=== PATIENT | female | born 1950 | race African-American/Black ===

== ENCOUNTER 2021-06-08 17:47 | Emergency (ER) | payer MEDICARE, MEDICAID ==
[~2021-06-08] VITALS: Ht 157.5 cm; Wt 40.8 kg
[2021-06-08 19:10] LABS: Basophils # (auto) 0 10 ^3/uL (0-0.2); Basophils % (auto) 1.1 % (0.0-2.0); Eosinophils # (auto) 0.1 10 ^3/uL (0-0.8); Eosinophils % (auto) 1.9 % (0.0-7.0); Hematocrit 35.7 % (36.0-46.0); Hemoglobin 11.8 g/dL (12.2-16.2); Lymphocytes % (auto) 24.6 % (10.0-50.0); Mean Corpuscular Hemoglobin 28.9 pg (28.0-32.0); Mean Corpuscular Hgb Conc. 33.1 g/dL (32.0-36.0); Mean Corpuscular Volume 87.4 fL (80.0-100.0); Monocytes # (auto) 0.4 10 ^3/uL (0-1.3); Monocytes % (auto) 8.5 % (0.0-12.0); Neutrophils # (auto) 2.7 10 ^3/uL (1.6-8.6); Neutrophils % (auto) 63.9 % (37.0-80.0); Nucleated Red Blood Cells % 0.2 %; Red Blood Cells 4.09 10^6/uL (4.0-5.20); White Blood Cell 4.2 10^3/uL (4.4-10.8)
[2021-06-08 19:25] LABS: Albumin 3.3 g/dL (3.4-5.0); BUN/Creatinine Ratio 22.7; Calcium 9.2 mg/dL (8.5-10.1); Potassium 3.5 mmol/L (3.5-5.1)
[2021-06-08 19:30] LABS: Bilirubin, Total 0.3 mg/dL (0.2-1.0); Total Protein 7.8 g/dL (6.4-8.2)
[2021-06-08] MEDS ORDERED: ASPirin 325 MG TAB PO ONE (21:00)
[2021-06-08 22:02] LABS: Urine Bacteria NONE SEEN /hpf (None Seen); Urine Blood Negative /uL (Negative); Urine Specific Gravity 1.013 (1.001-1.035); Urine WBC 1 /hpf (0 - 5)
[2021-06-09 03:08] VITALS: BP 167/95
== END 2021-06-09 03:36 | disposition short-term general hospital (02) ==
LOC: ER 17:47
DX: R41.82 Altered mental status, unspecified (principal); N28.9 Disorder of kidney and ureter, unspecified; R77.8 Other specified abnormalities of plasma proteins; R42 Dizziness and giddiness; R44.1 Visual hallucinations; Z20.822 Contact with and (suspected) exposure to COVID-19
CPT/HCPCS: 36415; 70450; 71045; 80053; 81001; 83880; 84484; 85025; 93005; 99291

== ENCOUNTER 2022-01-07 10:53 | Emergency (ER) | payer OTHER, MEDICAID ==
[~2022-01-07] VITALS: Ht 152.4 cm; Wt 60.0 kg
[2022-01-07] MEDS ORDERED: IPRATROPIUM BROM 0.5 MG/2.5ML INH SOL HHN ONE (11:15)
[2022-01-07] MEDS ORDERED: amLODIPine BESYLATE 5 MG TAB PO ONE (11:15)
[2022-01-07] MEDS ORDERED: ALBUTEROL SULF 2.5 MG/0.5ML(0.5%) NEB SOLN HHN ONE (11:15)
[2022-01-07 11:24] LABS: Basophils # (auto) 0 10 ^3/uL (0-0.2); Basophils % (auto) 0.4 % (0.0-2.0); Eosinophils # (auto) 0.1 10 ^3/uL (0-0.8); Eosinophils % (auto) 0.8 % (0.0-7.0); Hematocrit 46.9 % (36.0-46.0); Hemoglobin 15.3 g/dL (12.2-16.2); Lymphocytes # (auto) 1.2 10 ^3/uL (0.4-5.4); Lymphocytes % (auto) 18.5 % (10.0-50.0); Mean Corpuscular Hemoglobin 28.1 pg (28.0-32.0); Mean Corpuscular Hgb Conc. 32.6 g/dL (32.0-36.0); Mean Corpuscular Volume 86.3 fL (80.0-100.0); Monocytes # (auto) 0.4 10 ^3/uL (0-1.3); Monocytes % (auto) 6.4 % (0.0-12.0); Neutrophils # (auto) 4.9 10 ^3/uL (1.6-8.6); Neutrophils % (auto) 73.9 % (37.0-80.0); Nucleated Red Blood Cells % 0.2 %; Red Blood Cells 5.44 10^6/uL (4.0-5.20); Red Cell Distribution Width 15.8 % (11.8-14.3); White Blood Cell 6.7 10^3/uL (4.4-10.8)
[2022-01-07] MEDS ORDERED: methylPREDNISolone SOD SUCC 125 MG/2 ML VL IV ONE (11:45)
[2022-01-07 11:49] LABS: Albumin 3.2 g/dL (3.4-5.0); Calcium 9.3 mg/dL (8.5-10.1)
[2022-01-07 11:52] LABS: BUN/Creatinine Ratio 14.8; Bilirubin, Total 0.6 mg/dL (0.2-1.0)
[2022-01-07] MEDS ORDERED: METH4PAK PO ×2 (12:47→12:49)
[2022-01-07] MEDS ORDERED: AZIT1POW PO ×2 (12:47→12:49)
[2022-01-07] MEDS ORDERED: methylPREDNISolone SOD SUCC 125 MG/2 ML VL IM ONE (13:15)
[2022-01-07 13:19] VITALS: BP 174/104
[2022-01-07] MEDS ORDERED: cloNIDine HCL 0.1 MG TAB PO ONE (13:45)
== END 2022-01-07 13:56 | disposition home or self-care (01) ==
LOC: EDBD 10:53 → ER 10:53
DX: J44.1 Chronic obstructive pulmonary disease with (acute) exacerbation (principal); J20.9 Acute bronchitis, unspecified; F17.210 Nicotine dependence, cigarettes, uncomplicated; F12.90 Cannabis use, unspecified, uncomplicated; J44.9 Chronic obstructive pulmonary disease, unspecified; I10 Essential (primary) hypertension; Z20.822 Contact with and (suspected) exposure to COVID-19; Z86.73 Personal history of transient ischemic attack (TIA), and cerebral infarction without residual deficits; Z90.49 Acquired absence of other specified parts of digestive tract; Z98.890 Other specified postprocedural states
CPT/HCPCS: 36415; 71046; 80053; 85025; 85379; 87426; 93005; 94640; 96372; 99285; J2930; J7644

== ENCOUNTER 2022-01-26 09:37 | Emergency (ER) | payer OTHER, MEDICAID ==
[~2022-01-26] VITALS: Ht 160 cm; Wt 39.9 kg
[~2022-01-26 09:37] MED LIST: AZIT1POW PO; METH4PAK PO
[2022-01-26 10:30] VITALS: BP 171/92
[2022-01-26] MEDS ORDERED: ACETAMINOPHEN 325 MG TAB PO ONE (12:00)
== END 2022-01-26 17:26 | disposition home or self-care (01) ==
LOC: ER 09:37
DX: S62.617B Displaced fracture of proximal phalanx of left little finger, initial encounter for open fracture (principal); I10 Essential (primary) hypertension; E78.5 Hyperlipidemia, unspecified; J44.9 Chronic obstructive pulmonary disease, unspecified; F17.210 Nicotine dependence, cigarettes, uncomplicated; Z86.73 Personal history of transient ischemic attack (TIA), and cerebral infarction without residual deficits; Z90.49 Acquired absence of other specified parts of digestive tract; Z79.899 Other long term (current) drug therapy; X58.XXXA Exposure to other specified factors, initial encounter; Y93.89 Activity, other specified; Y92.89 Other specified places as the place of occurrence of the external cause; Y99.8 Other external cause status
CPT/HCPCS: 29130; 73140

== ENCOUNTER 2022-02-13 01:38 | Inpatient (IN) | payer OTHER, MEDICAID ==
[~2022-02-13] VITALS: Ht 160 cm; Wt 41.9 kg
[2022-02-13 03:29] LABS: Basophils # (auto) 0 10 ^3/uL (0-0.2); Basophils % (auto) 0.6 % (0.0-2.0); Eosinophils # (auto) 0.1 10 ^3/uL (0-0.8); Eosinophils % (auto) 1.4 % (0.0-7.0); Hematocrit 38.4 % (36.0-46.0); Hemoglobin 12.6 g/dL (12.2-16.2); Lymphocytes # (auto) 0.9 10 ^3/uL (0.4-5.4); Lymphocytes % (auto) 15.5 % (10.0-50.0); Mean Corpuscular Hemoglobin 28.5 pg (28.0-32.0); Mean Corpuscular Hgb Conc. 32.7 g/dL (32.0-36.0); Mean Corpuscular Volume 87.1 fL (80.0-100.0); Monocytes # (auto) 0.5 10 ^3/uL (0-1.3); Monocytes % (auto) 8.3 % (0.0-12.0); Neutrophils # (auto) 4.1 10 ^3/uL (1.6-8.6); Neutrophils % (auto) 74.2 % (37.0-80.0); Nucleated Red Blood Cells % 0.1 %; Red Blood Cells 4.41 10^6/uL (4.0-5.20); Red Cell Distribution Width 15.6 % (11.8-14.3); White Blood Cell 5.6 10^3/uL (4.4-10.8)
[2022-02-13 03:54] LABS: Albumin 3.2 g/dL (3.4-5.0); Bilirubin, Total 0.3 mg/dL (0.2-1.0); Calcium 9.3 mg/dL (8.5-10.1); Potassium 4.5 mmol/L (3.5-5.1); Total Protein 7.1 g/dL (6.4-8.2)
[2022-02-13] MEDS ORDERED: HEPARIN DRIP/D5W 100UNITS/ML 250 ML IV SCH (04:45)
[2022-02-13] MEDS ORDERED: MORPHINE SULFATE 4 MG/ML SYR/VIAL IV ONE (04:45)
[2022-02-13] MEDS ORDERED: ONDANSETRON HCL 4 MG/2 ML VIAL IV ONE (04:45)
[2022-02-13] MEDS ORDERED: HEPARIN SODIUM (PORCINE) 5000 UNITS/ML 1ML VIAL IV ONE (04:45)
[2022-02-13 05:54] LABS: INR 0.92 (0.9-1.15); Partial Thromboplastin Time 26.7 sec (24.6-33.4)
[2022-02-13] MEDS ORDERED: NITROGLYCERIN 0.4 MG SL TAB SL PRN (06:00)
[2022-02-13] MEDS ORDERED: DOCUSATE SOD 100 MG CAP PO PRN (06:00)
[2022-02-13] MEDS ORDERED: ONDANSETRON HCL 4 MG/2 ML VIAL IV PRN (06:00)
[2022-02-13] MEDS ORDERED: ACETAMINOPHEN 325 MG TAB PO PRN (06:00)
[2022-02-13] MEDS ORDERED: METOPROLOL TARTRATE 1MG/1ML-5ML VIAL IV ONE (06:30)
[2022-02-13] MEDS ORDERED: HEPARIN SODIUM (PORCINE) 5000 UNITS/ML 1ML VIAL SC ONE (06:45)
[2022-02-13] MEDS: SODIUM CHLOR 0.9% PF (SALINE LOCK) 10ML VIAL/SYR IV SCH ×2 (07:11→14:05)
[2022-02-13] MEDS: HEPARIN SODIUM (PORCINE) 5000 UNITS/ML 1ML VIAL IV SCH ×2 (08:29→10:00)
[2022-02-13] MEDS ORDERED: FAMOTIDINE (10MG/ML) 2ML VL IV SCH (10:00)
[2022-02-13] MEDS: ASPirin 81 mg TAB PO SCH (11:06)
[2022-02-13] MEDS: hydrALAZINE HCL 20 MG/ML VL IV PRN ×2 (14:38→19:54)
[2022-02-13] MEDS: MORPHINE SULFATE INJ 2 MG/ml SYRG IV PRN (19:53)
[2022-02-14] MEDS: METOPROLOL TARTRATE 25 MG TAB PO SCH ×4 (00:01→22:06)
[2022-02-14] MEDS: HEPARIN SODIUM (PORCINE) 5000 UNITS/ML 1ML VIAL IV SCH (00:02)
[2022-02-14] MEDS: SODIUM CHLOR 0.9% PF (SALINE LOCK) 10ML VIAL/SYR IV SCH ×4 (00:02→22:07)
[2022-02-14] MEDS: hydrALAZINE HCL 20 MG/ML VL IV PRN ×3 (00:06→19:14)
[2022-02-14] MEDS: MORPHINE SULFATE INJ 2 MG/ml SYRG IV PRN (01:44)
[2022-02-14] MEDS ORDERED: LABETALOL HCL 5 MG/ML 4ML SYRINGE IV ONE ×2 (02:30→03:15)
[2022-02-14 05:21] LABS: Basophils # (auto) 0 10 ^3/uL (0-0.2); Basophils % (auto) 0.5 % (0.0-2.0); Eosinophils # (auto) 0 10 ^3/uL (0-0.8); Eosinophils % (auto) 0.5 % (0.0-7.0); Hematocrit 38.1 % (36.0-46.0); Hemoglobin 12.3 g/dL (12.2-16.2); Lymphocytes # (auto) 0.9 10 ^3/uL (0.4-5.4); Lymphocytes % (auto) 15.9 % (10.0-50.0); Mean Corpuscular Hemoglobin 28.6 pg (28.0-32.0); Mean Corpuscular Hgb Conc. 32.3 g/dL (32.0-36.0); Mean Corpuscular Volume 88.4 fL (80.0-100.0); Monocytes # (auto) 0.3 10 ^3/uL (0-1.3); Monocytes % (auto) 5.4 % (0.0-12.0); Neutrophils # (auto) 4.5 10 ^3/uL (1.6-8.6); Neutrophils % (auto) 77.7 % (37.0-80.0); Nucleated Red Blood Cells % 0.1 %; Red Blood Cells 4.31 10^6/uL (4.0-5.20); White Blood Cell 5.8 10^3/uL (4.4-10.8)
[2022-02-14 05:43] LABS: Calcium 8.9 mg/dL (8.5-10.1); Potassium 4.9 mmol/L (3.5-5.1)
[2022-02-14 05:47] LABS: BUN/Creatinine Ratio 13.8
[2022-02-14 05:57] LABS: Bilirubin, Total 0.3 mg/dL (0.2-1.0); Total Protein 6.7 g/dL (6.4-8.2)
[2022-02-14 09:47] VITALS: BP 181/104
[2022-02-14] MEDS: ASPirin 81 mg TAB PO SCH (10:00)
[2022-02-14] MEDS ORDERED: amLODIPine BESYLATE 5 MG TAB PO ONE (10:45)
[2022-02-14] MEDS ORDERED: cefTRIAXone 1GM/50ML D5W 50 ML IV ONE (10:45)
[2022-02-14] MEDS ORDERED: LORazepam 2MG/ML-1ML VIAL IV PRN (10:45)
[2022-02-14 13:00] VITALS: BP 146/77
[2022-02-14 17:00] VITALS: BP 118/90
[2022-02-14] MEDS: HYDROcodone-ACET 5/325MG TAB PO PRN ×2 (18:49→23:04)
[2022-02-14] MEDS ORDERED: NIFE1TAB36 PO (19:54)
[2022-02-14] MEDS ORDERED: SERT50TA19 PO (20:04)
[2022-02-14] MEDS ORDERED: THEO400T10 PO (20:05)
[2022-02-14] MEDS ORDERED: GABA300C10 PO (20:07)
[2022-02-14 22:00] VITALS: BP 131/62
[2022-02-15] MEDS: HYDROcodone-ACET 5/325MG TAB PO PRN ×4 (03:53→20:37)
[2022-02-15 05:00] VITALS: BP 140/38
[2022-02-15] MEDS: SODIUM CHLOR 0.9% PF (SALINE LOCK) 10ML VIAL/SYR IV SCH ×3 (05:40→22:00)
[2022-02-15 07:06] LABS: Calcium 9.3 mg/dL (8.5-10.1)
[2022-02-15 07:08] LABS: BUN/Creatinine Ratio 16.1
[2022-02-15 07:14] LABS: Albumin 2.9 g/dL (3.4-5.0); Bilirubin, Total 0.2 mg/dL (0.2-1.0); Total Protein 6.4 g/dL (6.4-8.2)
[2022-02-15 07:15] LABS: Basophils # (auto) 0 10 ^3/uL (0-0.2); Basophils % (auto) 0.5 % (0.0-2.0); Eosinophils # (auto) 0.1 10 ^3/uL (0-0.8); Eosinophils % (auto) 1.9 % (0.0-7.0); Hematocrit 39.6 % (36.0-46.0); Hemoglobin 12.7 g/dL (12.2-16.2); Lymphocytes # (auto) 0.9 10 ^3/uL (0.4-5.4); Lymphocytes % (auto) 19.5 % (10.0-50.0); Mean Corpuscular Hemoglobin 28.1 pg (28.0-32.0); Mean Corpuscular Volume 87.9 fL (80.0-100.0); Monocytes # (auto) 0.5 10 ^3/uL (0-1.3); Monocytes % (auto) 10.1 % (0.0-12.0); Neutrophils # (auto) 3.3 10 ^3/uL (1.6-8.6); Nucleated Red Blood Cells % 0.2 %; Red Cell Distribution Width 15.9 % (11.8-14.3); White Blood Cell 4.9 10^3/uL (4.4-10.8)
[2022-02-15 07:54] LABS: Potassium 6.3 mmol/L (3.5-5.1)
[2022-02-15 08:00] VITALS: BP 151/85
[2022-02-15] MEDS: cefTRIAXone 1GM/50ML D5W 50 ML IV SCH (08:36)
[2022-02-15] MEDS: ASPirin 81 mg TAB PO SCH (11:20)
[2022-02-15] MEDS: amLODIPine BESYLATE 5 MG TAB PO SCH (11:21)
[2022-02-15] MEDS: METOPROLOL TARTRATE 25 MG TAB PO SCH ×2 (11:22→20:45)
[2022-02-15 12:00] VITALS: BP 151/76
[2022-02-15] MEDS: SODIUM ZIRCONIUM CYCL 10 GM PAK PO SCH ×2 (13:11→20:36)
[2022-02-15 16:00] VITALS: BP 149/82
[2022-02-15 16:49] LABS: Urine Bacteria FEW /hpf (None Seen); Urine Blood Negative /uL (Negative); Urine Specific Gravity 1.008 (1.001-1.035); Urine WBC 2 /hpf (0 - 5)
[2022-02-15] MEDS: SOD CHL 0.45% 1,000 ML IV SCH (17:32)
[2022-02-15 22:00] VITALS: BP 150/87
[2022-02-16] MEDS: HYDROcodone-ACET 5/325MG TAB PO PRN ×5 (00:55→21:45)
[2022-02-16] MEDS: SOD CHL 0.45% 1,000 ML IV SCH (00:59)
[2022-02-16] MEDS: SODIUM ZIRCONIUM CYCL 10 GM PAK PO SCH (04:21)
[2022-02-16] MEDS: hydrALAZINE HCL 20 MG/ML VL IV PRN (04:42)
[2022-02-16 05:00] VITALS: BP 160/83
[2022-02-16] MEDS: SODIUM CHLOR 0.9% PF (SALINE LOCK) 10ML VIAL/SYR IV SCH ×3 (05:51→21:46)
[2022-02-16 06:32] LABS: BUN/Creatinine Ratio 17.2; Calcium 8.9 mg/dL (8.5-10.1); Potassium 3.7 mmol/L (3.5-5.1)
[2022-02-16] MEDS: cefTRIAXone 1GM/50ML D5W 50 ML IV SCH (08:34)
[2022-02-16 09:00] VITALS: BP 149/81
[2022-02-16] MEDS: ASPirin 81 mg TAB PO SCH (10:37)
[2022-02-16] MEDS: amLODIPine BESYLATE 5 MG TAB PO SCH (10:38)
[2022-02-16] MEDS: METOPROLOL TARTRATE 25 MG TAB PO SCH ×2 (10:38→21:45)
[2022-02-16] MEDS ORDERED: hydrALAZINE HCL 25 MG TAB PO ONE (10:45)
[2022-02-16 13:00] VITALS: BP 155/83
[2022-02-16 17:00] VITALS: BP 144/85
[2022-02-16] MEDS: hydrALAZINE HCL 25 MG TAB PO SCH (21:46)
[2022-02-16 22:00] VITALS: BP 144/82
[2022-02-17 05:00] VITALS: BP 173/81
[2022-02-17] MEDS: hydrALAZINE HCL 20 MG/ML VL IV PRN (05:28)
[2022-02-17] MEDS: SODIUM CHLOR 0.9% PF (SALINE LOCK) 10ML VIAL/SYR IV SCH (05:29)
[2022-02-17 07:12] LABS: Calcium 9.1 mg/dL (8.5-10.1); Potassium 3.7 mmol/L (3.5-5.1)
[2022-02-17 07:15] LABS: BUN/Creatinine Ratio 18.6
[2022-02-17] MEDS: HYDROcodone-ACET 5/325MG TAB PO PRN ×2 (08:12→12:41)
[2022-02-17 09:00] VITALS: BP 137/51
[2022-02-17] MEDS: cefTRIAXone 1GM/50ML D5W 50 ML IV SCH (10:11)
[2022-02-17] MEDS: METOPROLOL TARTRATE 25 MG TAB PO SCH (10:16)
[2022-02-17] MEDS: hydrALAZINE HCL 25 MG TAB PO SCH (10:18)
[2022-02-17] MEDS: ASPirin 81 mg TAB PO SCH (10:18)
[2022-02-17] MEDS: amLODIPine BESYLATE 5 MG TAB PO SCH (10:18)
[2022-02-17] MEDS ORDERED: MET25T PO (11:09)
[2022-02-17] MEDS ORDERED: HYDR25TA87 PO (11:09)
[2022-02-17] MEDS ORDERED: AML5T PO (11:09)
[2022-02-17 12:18] VITALS: BP 143/69
[2022-02-17 13:00] VITALS: BP 143/69
== END 2022-02-17 14:40 | disposition home or self-care (01) | DRG 280 ==
LOC: EDSEX 01:38 → EDBD 01:38 → ER 01:38 → TELE 06:06 → TELE-CENTR 02-14 08:36
PROVIDERS: ADMIT Nurse Practitioner Family; ATTEND Internal Medicine
PROC: 05HA33Z Insertion of Infusion Device into Left Brachial Vein, Percutaneous Approach (ICD-10-PCS; principal; 2022-02-15)
PROC: B54NZZA Ultrasonography of Left Upper Extremity Veins, Guidance (ICD-10-PCS; 2022-02-15)
DX: I16.0 Hypertensive urgency (principal); G92.8 Other toxic encephalopathy; I21.A1 Myocardial infarction type 2; N17.0 Acute kidney failure with tubular necrosis; J44.1 Chronic obstructive pulmonary disease with (acute) exacerbation; I13.0 Hypertensive heart and chronic kidney disease with heart failure and stage 1 through stage 4 chronic kidney disease, or unspecified chronic kidney disease; E78.5 Hyperlipidemia, unspecified; F17.210 Nicotine dependence, cigarettes, uncomplicated; E87.5 Hyperkalemia; N18.9 Chronic kidney disease, unspecified; Z20.822 Contact with and (suspected) exposure to COVID-19; M19.90 Unspecified osteoarthritis, unspecified site; I50.9 Heart failure, unspecified; Z79.82 Long term (current) use of aspirin; Z79.899 Other long term (current) drug therapy; Z86.73 Personal history of transient ischemic attack (TIA), and cerebral infarction without residual deficits; Z71.6 Tobacco abuse counseling
CPT/HCPCS: 36415; 70450; 71045; 76775; 80048; 80053; 81001; 82607; 83880; 84132; 84443; 84484; 85025; 85610; 85730; 87086; 87426; 93005; 93306; 96374; 96375; 97163; G0378; J0696; J2405; J3490

== ENCOUNTER 2022-02-25 16:40 | Inpatient (IN) | payer OTHER, MEDICAID ==
[~2022-02-25] VITALS: Ht 165.1 cm; Wt 49.7 kg
[~2022-02-25 16:40] MED LIST changes: +AML5T PO; +GABA300C10 PO; +HYDR25TA87 PO; +MET25T PO; +NIFE1TAB36 PO; +SERT50TA19 PO; +THEO400T10 PO
[2022-02-25 18:35] LABS: Basophils # (auto) 0 10 ^3/uL (0-0.2); Basophils % (auto) 0.3 % (0.0-2.0); Eosinophils # (auto) 0 10 ^3/uL (0-0.8); Eosinophils % (auto) 0.1 % (0.0-7.0); Hematocrit 33.8 % (36.0-46.0); Lymphocytes # (auto) 0.9 10 ^3/uL (0.4-5.4); Lymphocytes % (auto) 11.5 % (10.0-50.0); Mean Corpuscular Hemoglobin 28.9 pg (28.0-32.0); Mean Corpuscular Hgb Conc. 32.5 g/dL (32.0-36.0); Mean Corpuscular Volume 88.8 fL (80.0-100.0); Monocytes # (auto) 0.5 10 ^3/uL (0-1.3); Monocytes % (auto) 6.4 % (0.0-12.0); Neutrophils # (auto) 6.1 10 ^3/uL (1.6-8.6); Neutrophils % (auto) 81.7 % (37.0-80.0); Nucleated Red Blood Cells % 0.1 %; Red Cell Distribution Width 15.6 % (11.8-14.3); White Blood Cell 7.5 10^3/uL (4.4-10.8)
[2022-02-25 18:59] LABS: Albumin 3.1 g/dL (3.4-5.0); BUN/Creatinine Ratio 14.8; Calcium 8.7 mg/dL (8.5-10.1); Potassium 4.4 mmol/L (3.5-5.1)
[2022-02-25 19:01] LABS: Bilirubin, Total 0.3 mg/dL (0.2-1.0); Total Protein 6.9 g/dL (6.4-8.2)
[2022-02-25] MEDS ORDERED: SODIUM CHLORIDE 0.9% 1,000 ML IV ONE (19:15)
[2022-02-25] MEDS ORDERED: ASPirin 325 MG TAB PO ONE ×2 (19:15)
[2022-02-25 22:30] LABS: Urine Bacteria FEW /hpf (None Seen); Urine Blood Negative /uL (Negative); Urine Hyaline Cast FEW /lpf (0 - 2); Urine Mucus FEW (None Seen); Urine Specific Gravity 1.017 (1.001-1.035); Urine WBC 2 /hpf (0 - 5)
[2022-02-25 22:48] LABS: Barbiturate Scree,Urine NEGATIVE (NEGATIVE); Benzodiazephine Screen, Urine NEGATIVE (NEGATIVE); Cocaine Screen, Urine NEGATIVE (NEGATIVE); Opiate Scree,Urine NEGATIVE (NEGATIVE); Phencyclidine Screen, Urine NEGATIVE (NEGATIVE)
[2022-02-25 22:56] LABS: Amphetamine Screen, Urine POSITIVE (NEGATIVE); Cannabinoid Screen, Urine POSITIVE (NEGATIVE)
[2022-02-26] MEDS ORDERED: NALOXONE HCL 1MG/ML 2ML SYRINGE IV ONE
[2022-02-26] MEDS ORDERED: ONDANSETRON HCL 4 MG/2 ML VIAL IV PRN (00:30)
[2022-02-26] MEDS ORDERED: MORPHINE SULFATE INJ 2 MG/ml SYRG IV PRN (00:30)
[2022-02-26] MEDS ORDERED: NITROGLYCERIN 0.4 MG SL TAB SL PRN (00:30)
[2022-02-26] MEDS ORDERED: ENOXAPARIN SOD 100 MG/1 ML SYRINGE SC ONE (00:30)
[2022-02-26] MEDS: ASPirin 81 mg TAB PO SCH (10:48)
[2022-02-26] MEDS: amLODIPine BESYLATE 5 MG TAB PO SCH (10:49)
[2022-02-26] MEDS: hydrALAZINE HCL 25 MG TAB PO SCH (10:49)
[2022-02-26] MEDS: NIFEdipine ER 30 MG TAB PO SCH (10:50)
[2022-02-26] MEDS: METOPROLOL TARTRATE 25 MG TAB PO SCH (10:54)
[2022-02-26] MEDS: PANTOPRAZOLE 40 MG TAB PO SCH (10:55)
[2022-02-26] MEDS ORDERED: CALCIUM GLUC 1,000mg/50ml-NS 50 ML IV ONE (16:00)
[2022-02-26] MEDS ORDERED: SODIUM ZIRCONIUM CYCL 10 GM PAK PO ONE (16:00)
[2022-02-26] MEDS ORDERED: SODIUM BICARBONATE 8.4% INJ 50ML SYRINGE IV ONE (16:00)
[2022-02-26] MEDS ORDERED: FUROSEMIDE 40 MG/4 ML VIAL IV ONE (16:00)
[2022-02-26] MEDS ORDERED: DEXTROSE (50%) 50ML SYRG IV ONE (16:00)
[2022-02-26] MEDS ORDERED: InsuLIN REG 1unit/0.01ml Soln (100units/ml) IV ONE (16:00)
[2022-02-26 23:27] VITALS: BP 114/67
[2022-02-27] VITALS (7 sets, daily range): BP systolic 109–136; BP diastolic 63–77
[2022-02-27] MEDS: ATORVASTATIN 20 MG TAB PO SCH (00:09)
[2022-02-27] MEDS: METOPROLOL TARTRATE 25 MG TAB PO SCH ×2 (00:09→09:53)
[2022-02-27] MEDS: hydrALAZINE HCL 25 MG TAB PO SCH ×2 (00:10→09:53)
[2022-02-27] MEDS ORDERED: INFLUENZA QUAD 2022-2023 0.5 ML SYRG IM ONE (00:15)
[2022-02-27] MEDS ORDERED: PNEUMOCOCCAL VACC POLYS 25 MCG/0.5 ML VIAL IM ONE (00:15)
[2022-02-27] MEDS ORDERED: HYDR-4798 PO (00:20)
[2022-02-27] MEDS: ACETAMINOPHEN 325 MG TAB PO PRN ×3 (01:45→15:39)
[2022-02-27 06:57] LABS: Calcium 8.6 mg/dL (8.5-10.1); Potassium 4.9 mmol/L (3.5-5.1)
[2022-02-27 06:59] LABS: BUN/Creatinine Ratio 17.1
[2022-02-27 08:20] LABS: Basophils # (auto) 0 10 ^3/uL (0-0.2); Basophils % (auto) 0.3 % (0.0-2.0); Eosinophils # (auto) 0.1 10 ^3/uL (0-0.8); Eosinophils % (auto) 0.8 % (0.0-7.0); Hematocrit 32.2 % (36.0-46.0); Hemoglobin 10.4 g/dL (12.2-16.2); Lymphocytes # (auto) 0.8 10 ^3/uL (0.4-5.4); Mean Corpuscular Hgb Conc. 32.3 g/dL (32.0-36.0); Mean Corpuscular Volume 89.7 fL (80.0-100.0); Monocytes # (auto) 0.6 10 ^3/uL (0-1.3); Monocytes % (auto) 7.7 % (0.0-12.0); Neutrophils # (auto) 6.4 10 ^3/uL (1.6-8.6); Neutrophils % (auto) 81.2 % (37.0-80.0); Nucleated Red Blood Cells % 0.1 %; Red Blood Cells 3.58 10^6/uL (4.0-5.20); Red Cell Distribution Width 16.1 % (11.8-14.3); White Blood Cell 7.8 10^3/uL (4.4-10.8)
[2022-02-27] MEDS: ASPirin 81 mg TAB PO SCH (09:52)
[2022-02-27] MEDS: amLODIPine BESYLATE 5 MG TAB PO SCH (09:53)
[2022-02-27] MEDS: ENOXAPARIN SOD 30 MG/0.3 ML SYRINGE SC SCH (09:54)
[2022-02-27] MEDS: PANTOPRAZOLE 40 MG TAB PO SCH (09:54)
[2022-02-27] MEDS: NIFEdipine ER 30 MG TAB PO SCH (09:54)
[2022-02-27] MEDS: ALBUTEROL SULF 2.5 MG/0.5ML(0.5%) NEB SOLN NEB SCH ×4 (10:33→22:00)
[2022-02-27] MEDS: IPRATROPIUM BROM 0.5 MG/2.5ML INH SOL NEB SCH ×4 (10:33→22:00)
[2022-02-27] MEDS: BUDESONIDE (INHALATION) 0.5 MG/2 ML NEB NEB SCH ×2 (10:34→22:00)
[2022-02-28] MEDS: ATORVASTATIN 20 MG TAB PO SCH ×2 (01:54→21:54)
[2022-02-28] MEDS: GABAPENTIN 300 MG CAP PO SCH ×3 (01:54→21:53)
[2022-02-28] MEDS: METOPROLOL TARTRATE 25 MG TAB PO SCH ×3 (01:54→21:53)
[2022-02-28] MEDS: hydrALAZINE HCL 25 MG TAB PO SCH ×3 (01:54→21:54)
[2022-02-28 05:00] VITALS: BP 130/62
[2022-02-28 06:16] LABS: Calcium 8.9 mg/dL (8.5-10.1)
[2022-02-28] MEDS: IPRATROPIUM BROM 0.5 MG/2.5ML INH SOL NEB SCH ×5 (06:48→22:00)
[2022-02-28] MEDS: ALBUTEROL SULF 2.5 MG/0.5ML(0.5%) NEB SOLN NEB SCH ×5 (06:49→22:00)
[2022-02-28 09:00] VITALS: BP 144/71
[2022-02-28] MEDS: ENOXAPARIN SOD 30 MG/0.3 ML SYRINGE SC SCH (09:57)
[2022-02-28] MEDS: ASPirin 81 mg TAB PO SCH (09:57)
[2022-02-28] MEDS: PANTOPRAZOLE 40 MG TAB PO SCH (09:58)
[2022-02-28] MEDS: NIFEdipine ER 30 MG TAB PO SCH (09:59)
[2022-02-28] MEDS: amLODIPine BESYLATE 5 MG TAB PO SCH (09:59)
[2022-02-28] MEDS: BUDESONIDE (INHALATION) 0.5 MG/2 ML NEB NEB SCH ×2 (10:47→22:00)
[2022-02-28 13:00] VITALS: BP 126/63
[2022-02-28 14:39] LABS: Hepatitis C Antibody Negative (Negative)
[2022-02-28] MEDS ORDERED: ALBU108A5 IN (16:13)
[2022-02-28] MEDS ORDERED: MET25T PO (16:13)
[2022-02-28] MEDS ORDERED: AML5T PO (16:13)
[2022-02-28] MEDS ORDERED: NIFE1TAB36 PO (16:13)
[2022-02-28] MEDS ORDERED: PRED20TA2 PO (16:13)
[2022-02-28] MEDS ORDERED: ATOR20TA50 PO (16:13)
[2022-02-28 17:00] VITALS: BP 107/62
[2022-02-28] MEDS: ACETAMINOPHEN 325 MG TAB PO PRN (19:40)
[2022-02-28 22:00] VITALS: BP 135/63
[2022-03-01] MEDS: ACETAMINOPHEN 325 MG TAB PO PRN ×2 (02:38→14:56)
[2022-03-01 05:00] VITALS: BP 122/67
[2022-03-01] MEDS: IPRATROPIUM BROM 0.5 MG/2.5ML INH SOL NEB SCH ×2 (07:13→10:00)
[2022-03-01] MEDS: BUDESONIDE (INHALATION) 0.5 MG/2 ML NEB NEB SCH (07:13)
[2022-03-01] MEDS: ALBUTEROL SULF 2.5 MG/0.5ML(0.5%) NEB SOLN NEB SCH ×2 (07:13→10:00)
[2022-03-01 08:30] VITALS: BP 137/79
[2022-03-01] MEDS: ASPirin 81 mg TAB PO SCH (09:10)
[2022-03-01] MEDS: amLODIPine BESYLATE 5 MG TAB PO SCH (09:11)
[2022-03-01] MEDS: PANTOPRAZOLE 40 MG TAB PO SCH (09:11)
[2022-03-01] MEDS: hydrALAZINE HCL 25 MG TAB PO SCH (09:12)
[2022-03-01] MEDS: NIFEdipine ER 30 MG TAB PO SCH (09:13)
[2022-03-01] MEDS: METOPROLOL TARTRATE 25 MG TAB PO SCH (09:13)
[2022-03-01] MEDS: ENOXAPARIN SOD 30 MG/0.3 ML SYRINGE SC SCH (09:15)
[2022-03-01] MEDS: GABAPENTIN 300 MG CAP PO SCH (09:19)
[2022-03-01 12:30] VITALS: BP 119/70
[2022-03-01 14:58] VITALS: BP 137/79
[2022-03-01] MEDS ORDERED: INFLUENZA QUAD 2022-2023 0.5 ML SYRG IM ONE (15:48)
== END 2022-03-01 16:00 | disposition home or self-care (01) | DRG 917 ==
LOC: EDBD 16:40 → ER 16:40 → TELE 02-26 00:34 → TELE-EAST 02-26 22:34
PROVIDERS: ADMIT Nurse Practitioner; ATTEND Hospitalist
DX: T43.651A Poisoning by methamphetamines accidental (unintentional), initial encounter (principal); G92.9 Unspecified toxic encephalopathy; I21.A1 Myocardial infarction type 2; N17.9 Acute kidney failure, unspecified; I13.0 Hypertensive heart and chronic kidney disease with heart failure and stage 1 through stage 4 chronic kidney disease, or unspecified chronic kidney disease; F14.10 Cocaine abuse, uncomplicated; I16.0 Hypertensive urgency; F15.10 Other stimulant abuse, uncomplicated; J44.9 Chronic obstructive pulmonary disease, unspecified; I50.9 Heart failure, unspecified; F32.A Depression, unspecified; Z20.822 Contact with and (suspected) exposure to COVID-19; F19.10 Other psychoactive substance abuse, uncomplicated; N18.9 Chronic kidney disease, unspecified; R09.02 Hypoxemia; F17.210 Nicotine dependence, cigarettes, uncomplicated; E78.5 Hyperlipidemia, unspecified; I25.2 Old myocardial infarction; Z86.73 Personal history of transient ischemic attack (TIA), and cerebral infarction without residual deficits; Y92.89 Other specified places as the place of occurrence of the external cause
CPT/HCPCS: 36415; 36600; 70450; 71045; 80048; 80053; 80307; 81001; 82805; 82962; 83880; 84132; 84484; 85025; 86803; 87081; 87340; 87426; 87804; 90686; 93005; 94640; 96361; 96372; 96374; 96375; 97163; 99291; G0378; J2405